=== PATIENT | female | born 1965 | race Caucasian/White ===

== ENCOUNTER 2018-12-10 17:38 | Emergency (ER) | payer OTHER, SELFPAY ==
[2018-12-10 17:44] VITALS: BP 131/92; PULSE 97; RESP 20; TEMP 38.1; O2SAT 100
--- NOTE | 2018-12-10 17:51 | DI.RAD.S_ITS ---
PROCEDURE: XR CHEST 2V INDICATIONS: shortness of air, fever TECHNIQUE: 2 views of the chest were acquired. COMPARISON: None. FINDINGS: Surgical changes and devices: None. Lungs and pleura: Lungs are clear. No pleural effusions or pneumothorax. Mediastinum: Mediastinal contours are normal. Heart size is normal. Bones and chest wall: No suspicious bony abnormalities. Soft tissues appear unremarkable. IMPRESSION: No acute pulmonary process. Dictated by: Carli Pichardo M.D. on 12/10/2018 at 18:20 Approved by: Carli Pichardo M.D. on 12/10/2018 at 18:20
[2018-12-10 18:05] LABS: Add Manual Diff / Slide Review NO; Basophils Absolute Auto 0 /uL (0-100); Basophils Percent Auto 0.2 % (0-2); Eosinophils Absolute Auto 100 /uL (0-450); Hematocrit 42.5 % (36-46); Hemoglobin 13.8 g/dL (12.0-16.0); Lymphocytes Absolute Auto 3300 /uL (1100-4500); Lymphocytes Percent Auto 29.2 % (25-40); Mean Corpuscular HGB Conc 32.5 % (30-36); Mean Corpuscular Hemoglobin 28.6 PG (26-34); Mean Corpuscular Volume 88.1 fL (80-100); Monocytes Absolute Auto 700 /uL (0-900); Monocytes Percent Auto 6.2 % (3-14); Neutrophils Absolute Auto 7200 /uL (1500-7000); Neutrophils Percent Auto 63.4 % (50-75); Platelet Count 254 X10^3/uL (150-400); Red Blood Cell Count 4.82 X10^6/uL (4.0-5.2); Red Cell Distribution Width 13.1 % (11.6-14.8); White Blood Cell Count 11.4 X10^3/uL (4.5-11.0)
[2018-12-10 18:13] LABS: Influenza A and B by PCR Rapid Negative (Negative)
[2018-12-10 18:15] LABS: Alanine Aminotransferase 86 IU/L (9-52); Albumin 4.7 g/dL (3.5-5.0); Albumin Globulin Ratio 1.3 (1.0-2.8); Alkaline Phosphatase 76 U/L (38-126); Aspartate Aminotransferase 43 IU/L (14-36); Bilirubin Total 0.3 mg/dL (0.2-1.3); Blood Urea Nitrogen 20 mg/dL (7-17); Calcium 9.6 mg/dL (8.4-10.2); Carbon Dioxide 26 mmol/L (22-32); Chloride 103 mmol/L (98-107); Creatine Kinase 64 U/L (30-135); Estimated Glomerular Filt Rate > 60.0 mL/min (>60); Globulin 3.7 g/dL (1.7-4.1); Glucose 149 mg/dL (70-100); HEMOLYSIS < 15 (0-50); Potassium 4.1 mmol/L (3.4-5.1); Sodium 141 mmol/L (137-145); Total Protein 8.4 g/dL (6.3-8.2)
[2018-12-10 18:26] LABS: Troponin I < 0.012 ng/mL (0.01-0.034)
--- NOTE | 2018-12-10 19:53 | ED.SOB ---
HPI - SOB/Dyspnea General Chief Complaint: Shortness of Breath/Dyspnea Stated Complaint: BACK OF NECK PAIN, RACING HEART, SHORT OF BREATH Time Seen by Provider: 12/10/18 19:46 Source: patient Mode of arrival: ambulatory Limitations: no limitations History of Present Illness 52-year-old former smoker benign medical history presents with a chief complaint of multiple episodes of racing heart since Sunday. She states she feels palpitations and during these episodes, which can last up to 5/10 minutes she has chest pain and feels lightheaded. All other times she feels completely normal and at baseline. She denies any shortness of breath. She denies any new medications or dietary change. She denies any significant stress for other recent illness. She denies recent travel, history of blood clot, exogenous estrogen or other risk factors for pulmonary embolism. MD Complaint: shortness of breath and chest pain Onset (ago): day(s) Severity: mild Consistency/Duration: intermittent Relieving factors: nothing Exacerbating factors: nothing Associated symptoms: chest pain, pain with inspiration and palpitations Treatment prior to arrival: none Related Data Home oxygen amount: none Allergies Allergy/AdvReac Type Severity Reaction Status Date / Time No Known Drug Allergies Allergy Verified 12/10/18 17:51 Review of Systems Constitutional Denies chills, Denies fever(s), Denies lethargy and Denies weakness Eyes Denies change in vision, Denies eye discharge, Denies irritation and Denies loss of vision ENT Ears, Nose, Mouth, and Throat: Denies change in voice, Denies neck pain and Denies sore throat Cardiovascular Reports chest pain, Denies irregular heart rhythm, Denies lightheadedness, Reports palpitations, Denies dyspnea, Denies dyspnea on exertion and Denies orthopnea Respiratory Denies cough, Denies dyspnea, Denies dyspnea on exertion and Denies wheezing Gastrointestinal Gastrointestinal: Denies abdominal pain, Denies change in bowel habits, Denies diarrhea, Denies nausea and Denies vomiting Genitourinary Denies hematuria, Denies flank pain, Denies urinary incontinence and Denies urinary urgency Musculoskeletal Denies neck pain Integumentary/Breasts Denies pruritus, Denies erythema, Denies rash and Denies wounds Neurologic Denies confusion, Denies loss of vision and Denies weakness Psychiatric Denies anxiety, Denies confusion, Denies depression, Denies homicidal ideation and Denies suicidal ideation Endocrine Reports palpitations Hematologic/Lymphatic Denies easy bruising Allergic/Immunologic Denies wheezing PFSH Social History Smoking Status: Never smoker Social History Smoking Status: Never smoker Exam Narrative Exam Narrative: GENERAL: This is a well-nourished, well-developed patient, in mild distress. HEAD: Atraumatic. Normocephalic. No temporal or scalp tenderness. EYES: Pupils equal round and reactive. Extraocular motions intact. No scleral icterus. No injection or drainage. ENT: Nose without bleeding, purulent drainage or septal hematoma. Throat without erythema, tonsillar hypertrophy or exudate. Uvula midline. Airway patent. NECK: Trachea midline. No JVD or lymphadenopathy. Supple, nontender, no meningeal signs. CARDIOVASCULAR: Tachycardic, regular rhythm without murmurs, gallops, or rubs. RESPIRATORY: Clear to auscultation. Breath sounds equal bilaterally. No wheezes, rales, or rhonchi. GASTROINTESTINAL: Abdomen soft, non-tender, nondistended. No hepato-splenomegaly, or palpable masses. No guarding. EXTREMITIES: No clubbing, cyanosis, or edema. No joint tenderness, effusion, or edema noted. BACK: Nontender without deformity or crepitance. No flank tenderness. NEURO: AOx3. SKIN: No rash or erythema. Initial Vital Signs Initial Vital Signs: Vital Signs Temperature 100.5 F H 12/10/18 17:44 Pulse Rate 97 H 12/10/18 17:44 Respiratory Rate 20 12/10/18 17:44 Blood Pressure 131/92 H 12/10/18 17:44 Pulse Oximetry 100 12/10/18 17:44 Scores PERC Score Age greater than or equal to 50 years: Yes Heart rate greater than or equal to 100 bpm: Yes Room Air O2 Sat less than 95%: No Unilateral leg swelling: No Recent trauma or surgery: No Hemoptysis: No Prior PE or DVT: No Hormone Use: No Total PERC Score: 2 Wells' Criteria for PE Clinical signs and symptoms of PE: No PE is #1 Dx or equally likely: No Heart rate > 100: Yes Immobilization at least 3 days or surg in previous 4 weeks: No History of PE or DVT: No Hemoptysis: No Malignancy w/Treatment within 6 months or palliative: No Wells' PE Score total: 1.5 Course Orders Ordered: ED Orders 12/10/18 17:51 XR chest 2V Stat EKG-12 Lead Stat 12/10/18 17:55 Complete Blood Count AUTO DIFF Stat Comprehensive Metabolic Panel Stat D Dimer Stat Influenza A and B by PCR Rapid Stat Thyroid Stimulating Hormone Stat Troponin & CK Cardiac Panel Stat 12/10/18 18:05 Urine Drug Screen, Rapid Stat 12/10/18 20:46 CT angio chest PE protocol Stat Discontinued Medications Sodium Chloride (Normal Saline 0.9%) 1,000 mls @ 1,000 mls/hr IV BOLUS ONE Stop: 12/10/18 20:59 Last Infusion: 12/10/18 21:13 Dose: 1,000 mls/hr Infusion: 12/10/18 20:53 Dose: 0 mls/hr Admin: 12/10/18 20:14 Dose: 1,000 mls/hr Reevaluation(s) Reevaluation #1: Maci's PE algorithm employed and Wells score is low risk, patient fails PERC and therefore DDimer ordered which was elevated hence the decision to order CTA for PE> Vital Signs - 8 hr 12/10/18 17:44 12/10/18 19:54 12/10/18 20:30 Temperature 100.5 F H Pulse Rate 97 H 106 H 98 H Respiratory Rate 20 17 15 Blood Pressure 131/92 H Blood Pressure [Right Arm] 119/83 117/78 Pulse Oximetry 100 96 98 12/10/18 21:30 Temperature Pulse Rate 93 H Respiratory Rate 21 Blood Pressure Blood Pressure [Right Arm] 116/82 Pulse Oximetry 100 MDM - SOB/Dyspnea Lab Data Result diagrams: 12/10/18 17:55 12/10/18 17:55 Lab Results 12/10/18 12/10/18 12/10/18 Range/Units 17:55 17:55 17:55 WBC 11.4 H (4.5-11.0) X10^3/uL RBC 4.82 (4.0-5.2) X10^6/uL Hgb 13.8 (12.0-16.0) g/dL Hct 42.5 (36-46) % MCV 88.1 (80-100) fL MCH 28.6 (26-34) PG MCHC 32.5 (30-36) % RDW 13.1 (11.6-14.8) % Plt Count 254 (150-400) X10^3/uL Neut % (Auto) 63.4 (50-75) % Lymph % (Auto) 29.2 (25-40) % Phillips % (Auto) 6.2 (3-14) % Eos % (Auto) 1.0 L (2-4) % Baso % (Auto) 0.2 (0-2) % Neut # (Auto) 7200 H (8696-8390) /uL Lymph # (Auto) 3300 (0849-7965) /uL Phillips # (Auto) 700 (0-900) /uL Eos # (Auto) 100 (0-450) /uL Baso # (Auto) 0 (0-100) /uL D-Dimer (<230) ng/mL Sodium 141 (137-145) mmol/L Potassium 4.1 (3.4-5.1) mmol/L Chloride 103 (98-107) mmol/L Carbon Dioxide 26 (22-32) mmol/L BUN 20 H (7-17) mg/dL Creatinine 0.80 (0.52-1.04) mg/dL Estimated GFR > 60.0 (>60) mL/min BUN/Creatinine Ratio 25.0 H (6-22) Glucose 149 H (70-100) mg/dL Calcium 9.6 (8.4-10.2) mg/dL Total Bilirubin 0.3 (0.2-1.3) mg/dL AST 43 H (14-36) IU/L ALT 86 H (9-52) IU/L Alkaline Phosphatase 76 (38-126) U/L Total Creatine Kinase 64 (30-135) U/L CK-MB (CK-2) TNP CK-MB (CK-2) Rel Index TNP Troponin I < 0.012 (0.01-0.034) ng/mL Total Protein 8.4 H (6.3-8.2) g/dL Albumin 4.7 (3.5-5.0) g/dL Globulin 3.7 (1.7-4.1) g/dL Albumin/Globulin Ratio 1.3 (1.0-2.8) TSH (0.47-4.68) uIU/mL Urine Opiates Screen (Negative) Ur Oxycodone Screen (Negative) Urine Methadone Screen (Negative) Ur Barbiturates Screen (Negative) U Tricyclic Antidepress (Negative) Ur Phencyclidine Scrn (Negative) Ur Amphetamines Screen (Negative) U Methamphetamines Scrn (Negative) Ur MDMA Scrn (Ecstasy) (Negative) U Benzodiazepines Scrn (Negative) Urine Cocaine Screen (Negative) U Marijuana (THC) Screen (Negative) Influenza A & B (PCR) Negative (Negative) 12/10/18 12/10/18 12/10/18 Range/Units 17:55 17:55 18:05 WBC (4.5-11.0) X10^3/uL RBC (4.0-5.2) X10^6/uL Hgb (12.0-16.0) g/dL Hct (36-46) % MCV (80-100) fL MCH (26-34) PG MCHC (30-36) % RDW (11.6-14.8) % Plt Count (150-400) X10^3/uL Neut % (Auto) (50-75) % Lymph % (Auto) (25-40) % Phillips % (Auto) (3-14) % Eos % (Auto) (2-4) % Baso % (Auto) (0-2) % Neut # (Auto) (5614-5113) /uL Lymph # (Auto) (9668-7387) /uL Phillips # (Auto) (0-900) /uL Eos # (Auto) (0-450) /uL Baso # (Auto) (0-100) /uL D-Dimer 396 H (<230) ng/mL Sodium (137-145) mmol/L Potassium (3.4-5.1) mmol/L Chloride (98-107) mmol/L Carbon Dioxide (22-32) mmol/L BUN (7-17) mg/dL Creatinine (0.52-1.04) mg/dL Estimated GFR (>60) mL/min BUN/Creatinine Ratio (6-22) Glucose (70-100) mg/dL Calcium (8.4-10.2) mg/dL Total Bilirubin (0.2-1.3) mg/dL AST (14-36) IU/L ALT (9-52) IU/L Alkaline Phosphatase (38-126) U/L Total Creatine Kinase (30-135) U/L CK-MB (CK-2) CK-MB (CK-2) Rel Index Troponin I (0.01-0.034) ng/mL Total Protein (6.3-8.2) g/dL Albumin (3.5-5.0) g/dL Globulin (1.7-4.1) g/dL Albumin/Globulin Ratio (1.0-2.8) TSH 2.48 (0.47-4.68) uIU/mL Urine Opiates Screen Negative (Negative) Ur Oxycodone Screen Negative (Negative) Urine Methadone Screen Negative (Negative) Ur Barbiturates Screen Negative (Negative) U Tricyclic Antidepress Negative (Negative) Ur Phencyclidine Scrn Negative (Negative) Ur Amphetamines Screen Negative (Negative) U Methamphetamines Scrn Negative (Negative) Ur MDMA Scrn (Ecstasy) Negative (Negative) U Benzodiazepines Scrn Positive H (Negative) Urine Cocaine Screen Negative (Negative) U Marijuana (THC) Screen Negative (Negative) Influenza A & B (PCR) (Negative) Imaging Data Chest x-ray: Radiologist's impression: NAP CT scan - chest: Radiologist's impression: [place] [address] CT Scan Report Signed Patient: DAVID OATES MMR#: [id number] : 1965Acct:[id number] Age/Sex: 52 / FDate of Service: 12/10/18 Loc: ED Accession Number: [id number] Procedure: CT angio chest PE protocol Ordering Provider: Bill Perkins D.O. PROCEDURE: CT ANGIO CHEST PE PROTOCOL INDICATIONS: tachy, SOB, pleuritic pain, elevated DDimer TECHNIQUE: After the administration of intravenous contrast, 2 mm thick sections acquired from the pulmonary apices to the posterior costophrenic angles. 3-dimensional maximum intensity projection (MIP) coronal and sagittal reformats were then acquired through the thorax. For radiation dose reduction, the following was used: automated exposure control, adjustment of mA and/or kV according to patient size. COMPARISON: [facility], CR, XR CHEST 2V, 12/10/2018, 18:09. FINDINGS: Image quality: Excellent. Pulmonary arteries: Pulmonary arteries are normal in size, and demonstrate no intraluminal filling defects to suggest central pulmonary embolism. Lungs and pleura: 5 mm right lower lobe nodule. No pleural effusions or pneumothorax. Central and peripheral airways are patent. Mediastinum: Heart size is normal, without pericardial effusion. No mediastinal or hilar adenopathy. Thoracic aorta is normal in caliber and enhancement. Esophagus is normal in caliber, without hiatal hernia. Bones and chest wall: No suspicious bony lesions. Ribs and thoracic spine appear intact throughout. Thyroid gland is unremarkable. No axillary or supraclavicular adenopathy. Abdomen: Liver is enlarged. Otherwise, visualized upper abdominal solid organs appear normal in the early arterial phase of enhancement. IMPRESSION: 1. No pulmonary embolism. 2. Nonspecific 5 mm right lower lobe nodule. No priors are available for comparison. Recommend interval followup as below. Fleischner Society criteria for lung nodule followup. Nodule size (mm)Low-risk patientHigh-risk patient<6 (single or multiple)No routine followup/Optional CT at 12 months.6-8 (single or multiple)CT at 6-12 months; then noptional CT at 18-24 monthsCT at 6-12 months, then 18-24 months i>8 (single)CT at 3 months, then optional CT at 18-24 months if no change.Initial follow-up CT at 3-6 months, then 18-24 months >8 (multiple)CT at 3-[address] at 18-24 months.CT at 3-6 months, then CT at 18-24 months.Non-solid (ground-glass) or partly solid nodules may require longer follow-up to exclude indolent adenocarcinoma. Dictated by: Carli Pichardo M.D. on 12/10/2018 at 21:21 Approved by: Carli Pichardo M.D. on 12/10/2018 at 21:25 ECG Data Attestation: I personally reviewed and interpreted this ECG as follows: Prior ECG tracings: not available for review Interpretation: EKG is normal sinus rhythm rate [ 97] and free of any signs of ischemia or ectopy. No ST segmental elevation or depression. No T wave inversions MDM Narrative Medical decision making narrative: Multiple etiologies for patient's symptoms considered including: [cardiac ischemia, tachyarrhythmia, pulmonary embolism versus other] Patient's symptoms improved or duration of stay with above-stated therapies. Findings and discharge diagnosis discussed with patient/family followed by verbalization of understanding Return precautions discussed with patient/family whom verbalize understanding. Discharge Plan Departure Patient Disposition: Home Clinical Impression: Atypical chest pain, Heart palpitations Discharge Date/Time: 12/10/18 21:51 Interventions: ED Discharge Assessment Last Done: 12/10/18 21:51 Instructions: DI for Atypical Chest Pain Activity Restrictions/Additional Instructions: *You have been diagnosed with [ atypical chest pain and palpitations ] *What to do: * continue to take medications as directed *Follow up with your primary care provider in 2-3 days, call for an appointment. Let them know you were seen in the Emergency Department and that we ask that you be seen in follow up *Return to ER if you should have any new, worsening or concerning symptoms * avoid caffeine, nicotine, alcohol and other stimulants such as those found in many [id number] cough and cold medications
[2018-12-10 19:54] VITALS: BP 119/83; PULSE 106; RESP 17; O2SAT 96
--- NOTE | 2018-12-10 20:02 | ED_ITS ---
HPI - SOB/Dyspnea General Chief Complaint: Shortness of Breath/Dyspnea Stated Complaint: BACK OF NECK PAIN, RACING HEART, SHORT OF BREATH Time Seen by Provider: 12/10/18 19:46 Source: patient Mode of arrival: ambulatory Limitations: no limitations History of Present Illness 52-year-old former smoker benign medical history presents with a chief complaint of multiple episodes of racing heart since Sunday. She states she feels palpitations and during these episodes, which can last up to 5/10 minutes she has chest pain and feels lightheaded. All other times she feels completely normal and at baseline. She denies any shortness of breath. She denies any new medications or dietary change. She denies any significant stress for other r ecent illness. She denies recent travel, history of blood clot, exogenous estrogen or other risk factors for pulmonary embolism. MD Complaint: shortness of breath and chest pain Onset (ago): day(s) Severity: mild Consistency/Duration: intermittent Relieving factors: nothing Exacerbating factors: nothing Associated symptoms: chest pain, pain with inspiration and palpitations Treatment prior to arrival: none Related Data Home oxygen amount: none Allergies Allergy/AdvReac Type Severity Reaction Status Date / Time No Known Drug Allergies Allergy Verified 12/10/18 17:51 Review of Systems Constitutional Denies chills, Denies fever(s), Denies lethargy and Denies weakness Eyes Denies change in vision, Denies eye discharge, Denies irritation and Denies loss of vision ENT Ears, Nose, Mouth, and Throat: Denies change in voice, Denies neck pain and Denies sore throat Cardiovascular Reports chest pain, Denies irregular heart rhythm, Denies lightheadedness, Reports palpitations, Denies dyspnea, Denies dyspnea on exertion and Denies orthopnea Respiratory Denies cough, Denies dyspnea, Denies dyspnea on exertion and Denies wheezing Gastrointestinal Gastrointestinal: Denies abdominal pain, Denies change in bowel habits, Denies diarrhea, Denies nausea and Denies vomiting Genitourinary Denies hematuria, Denies flank pain, Denies urinary incontinence and Denies urinary urgency Musculoskeletal Denies neck pain Integumentary/Breasts Denies pruritus, Denies erythema, Denies rash and Denies wounds Neurologic Denies confusion, Denies loss of vision and Denies weakness Psychiatric Denies anxiety, Denies confusion, Denies depression, Denies homicidal ideation and Denies suicidal ideation Endocrine Reports palpitations Hematologic/Lymphatic Denies easy bruising Allergic/Immunologic Denies wheezing PFSH Social History Smoking Status: Never smoker Social History Smoking Status: Never smoker Exam Narrative Exam Narrative: GENERAL: This is a well-nourished, well-developed patient, in mild distress. HEAD: Atraumatic. Normocephalic. No temporal or scalp tenderness. EYES: Pupils equal round and reactive. Extraocular motions intact. No scleral icterus. No injection or drainage. ENT: Nose without bleeding, purulent drainage or septal hematoma. Throat without erythema, tonsillar hypertrophy or exudate. Uvula midline. Airway patent. NECK: Trachea midline. No JVD or lymphadenopathy. Supple, nontender, no meningeal signs. CARDIOVASCULAR: Tachycardic, regular rhythm without murmurs, gallops, or rubs. RESPIRATORY: Clear to auscultation. Breath sounds equal bilaterally. No wheezes, rales, or rhonchi. GASTROINTESTINAL: Abdomen soft, non-tender, nondistended. No hepato- splenomegaly, or palpable masses. No guarding. EXTREMITIES: No clubbing, cyanosis, or edema. No joint tenderness, effusion, or edema noted. BACK: Nontender without deformity or crepitance. No flank tenderness. NEURO: AOx3. SKIN: No rash or erythema. Initial Vital Signs Initial Vital Signs: Vital Signs Temperature 100.5 F H 12/10/18 17:44 Pulse Rate 97 H 12/10/18 17:44 Respiratory Rate 20 12/10/18 17:44 Blood Pressure 131/92 H 12/10/18 17:44 Pulse Oximetry 100 12/10/18 17:44 Scores PERC Score Age greater than or equal to 50 years: Yes Heart rate greater than or equal to 100 bpm: Yes Room Air O2 Sat less than 95%: No Unilateral leg swelling: No Recent trauma or surgery: No Hemoptysis: No Prior PE or DVT: No Hormone Use: No Total PERC Score: 2 Wells' Criteria for PE Clinical signs and symptoms of PE: No PE is #1 Dx or equally likely: No Heart rate > 100: Yes Immobilization at least 3 days or surg in previous 4 weeks: No History of PE or DVT: No Hemoptysis: No Malignancy w/Treatment within 6 months or palliative: No Wells' PE Score total: 1.5 Course Orders Ordered: ED Orders 12/10/18 17:51 XR chest 2V Stat EKG-12 Lead Stat 12/10/18 17:55 Complete Blood Count AUTO DIFF Stat Comprehensive Metabolic Panel Stat D Dimer Stat Influenza A and B by PCR Rapid Stat Thyroid Stimulating Hormone Stat Troponin & CK Cardiac Panel Stat 12/10/18 18:05 Urine Drug Screen, Rapid Stat 12/10/18 20:46 CT angio chest PE protocol Stat Discontinued Medications Sodium Chloride (Normal Saline 0.9%) 1,000 mls @ 1,000 mls/hr IV BOLUS ONE Stop: 12/10/18 20:59 Last Infusion: 12/10/18 21:13 Dose: 1,000 mls/hr Infusion: 12/10/18 20:53 Dose: 0 mls/hr Admin: 12/10/18 20:14 Dose: 1,000 mls/hr Reevaluation(s) Reevaluation #1: Maci's PE algorithm employed and Wells score is low risk, patient fails PERC and therefore DDimer ordered which was elevated hence the decision to order CTA for PE> Vital Signs - 8 hr 12/10/18 17:44 12/10/18 19:54 12/10/18 20:30 Temperature 100.5 F H Pulse Rate 97 H 106 H 98 H Respiratory Rate 20 17 15 Blood Pressure 131/92 H Blood Pressure [Right Arm] 119/83 117/78 Pulse Oximetry 100 96 98 12/10/18 21:30 Temperature Pulse Rate 93 H Respiratory Rate 21 Blood Pressure Blood Pressure [Right Arm] 116/82 Pulse Oximetry 100 MDM - SOB/Dyspnea Lab Data Result diagrams: 12/10/18 17:55 12/10/18 17:55 Lab Results 12/10/18 12/10/18 12/10/18 Range/Units 17:55 17:55 17:55 WBC 11.4 H (4.5-11.0) X10^3/uL RBC 4.82 (4.0-5.2) X10^6/uL Hgb 13.8 (12.0-16.0) g/dL Hct 42.5 (36-46) % MCV 88.1 (80-100) fL MCH 28.6 (26-34) PG MCHC 32.5 (30-36) % RDW 13.1 (11.6-14.8) % Plt Count 254 (150-400) X10^3/uL Neut % (Auto) 63.4 (50-75) % Lymph % (Auto) 29.2 (25-40) % [place] % (Auto) 6.2 (3-14) % Eos % (Auto) 1.0 L (2-4) % Baso % (Auto) 0.2 (0-2) % Neut # (Auto) 7200 H (1833-3253) /uL Lymph # (Auto) 3300 (7147-3662) /uL [place] # (Auto) 700 (0-900) /uL Eos # (Auto) 100 (0-450) /uL Baso # (Auto) 0 (0-100) /uL D-Dimer (<230) ng/mL Sodium 141 (137-145) mmol/L Potassium 4.1 (3.4-5.1) mmol/L Chloride 103 (98-107) mmol/L Carbon Dioxide 26 (22-32) mmol/L BUN 20 H (7-17) mg/dL Creatinine 0.80 (0.52-1.04) mg/dL Estimated GFR > 60.0 (>60) mL/min BUN/Creatinine Ratio 25.0 H (6-22) Glucose 149 H (70-100) mg/dL Calcium 9.6 (8.4-10.2) mg/dL Total Bilirubin 0.3 (0.2-1.3) mg/dL AST 43 H (14-36) IU/L ALT 86 H (9-52) IU/L Alkaline Phosphatase 76 (38-126) U/L Total Creatine Kinase 64 (30-135) U/L CK-MB (CK-2) TNP CK-MB (CK-2) Rel Index TNP Troponin I < 0.012 (0.01-0.034) ng/mL Total Protein 8.4 H (6.3-8.2) g/dL Albumin 4.7 (3.5-5.0) g/dL Globulin 3.7 (1.7-4.1) g/dL Albumin/Globulin Ratio 1.3 (1.0-2.8) TSH (0.47-4.68) uIU/mL Urine Opiates Screen (Negative) Ur Oxycodone Screen (Negative) Urine Methadone Screen (Negative) Ur Barbiturates Screen (Negative) U Tricyclic Antidepress (Negative) Ur Phencyclidine Scrn (Negative) Ur Amphetamines Screen (Negative) U Methamphetamines Scrn (Negative) Ur MDMA Scrn (Ecstasy) (Negative) U Benzodiazepines Scrn (Negative) Urine Cocaine Screen (Negative) U Marijuana (THC) Screen (Negative) Influenza A & B (PCR) Negative (Negative) 12/10/18 12/10/18 12/10/18 Range/Units 17:55 17:55 18:05 WBC (4.5-11.0) X10^3/uL RBC (4.0-5.2) X10^6/uL Hgb (12.0-16.0) g/dL Hct (36-46) % MCV (80-100) fL MCH (26-34) PG MCHC (30-36) % RDW (11.6-14.8) % Plt Count (150-400) X10^3/uL Neut % (Auto) (50-75) % Lymph % (Auto) (25-40) % [place] % (Auto) (3-14) % Eos % (Auto) (2-4) % Baso % (Auto) (0-2) % Neut # (Auto) (3252-1104) /uL Lymph # (Auto) (4357-5920) /uL [place] # (Auto) (0-900) /uL Eos # (Auto) (0-450) /uL Baso # (Auto) (0-100) /uL D-Dimer 396 H (<230) ng/mL Sodium (137-145) mmol/L Potassium (3.4-5.1) mmol/L Chloride (98-107) mmol/L Carbon Dioxide (22-32) mmol/L BUN (7-17) mg/dL Creatinine (0.52-1.04) mg/dL Estimated GFR (>60) mL/min BUN/Creatinine Ratio (6-22) Glucose (70-100) mg/dL Calcium (8.4-10.2) mg/dL Total Bilirubin (0.2-1.3) mg/dL AST (14-36) IU/L ALT (9-52) IU/L Alkaline Phosphatase (38-126) U/L Total Creatine Kinase (30-135) U/L CK-MB (CK-2) CK-MB (CK-2) Rel Index Troponin I (0.01-0.034) ng/mL Total Protein (6.3-8.2) g/dL Albumin (3.5-5.0) g/dL Globulin (1.7-4.1) g/dL Albumin/Globulin Ratio (1.0-2.8) TSH 2.48 (0.47-4.68) uIU/mL Urine Opiates Screen Negative (Negative) Ur Oxycodone Screen Negative (Negative) Urine Methadone Screen Negative (Negative) Ur Barbiturates Screen Negative (Negative) U Tricyclic Antidepress Negative (Negative) Ur Phencyclidine Scrn Negative (Negative) Ur Amphetamines Screen Negative (Negative) U Methamphetamines Scrn Negative (Negative) Ur MDMA Scrn (Ecstasy) Negative (Negative) U Benzodiazepines Scrn Positive H (Negative) Urine Cocaine Screen Negative (Negative) U Marijuana (THC) Screen Negative (Negative) Influenza A & B (PCR) (Negative) Imaging Data Chest x-ray: Radiologist's impression: NAP CT scan - chest: Radiologist's impression: [place] [address] CT Scan Report Signed Patient: DAVID OATES [facility]#: [id number] : 1965Acct:[id number] Age/Sex: 52 / FDate of Service: 12/10/18 Loc: ED Accession Number: [id number] Procedure: CT angio chest PE protocol Ordering Provider: Bill Perkins D.O. PROCEDURE: CT ANGIO CHEST PE PROTOCOL INDICATIONS: tachy, SOB, pleuritic pain, elevated DDimer TECHNIQUE: After the administration of intravenous contrast, 2 mm thick sections acquired from the pulmonary apices to the posterior costophrenic angles. 3-dimensional maximum intensity projection (MIP) coronal and sagittal reformats were then acquired through the thorax. For radiation dose reduction, the following was used: automated exposure control, adjustment of mA and/or kV according to patient size. COMPARISON: [facility], CR, XR CHEST 2V, 12/10/2018, 18:09. FINDINGS: Image quality: Excellent. Pulmonary arteries: Pulmonary arteries are normal in size, and demonstrate no intraluminal filling defects to suggest central pulmonary embolism. Lungs and pleura: 5 mm right lower lobe nodule. No pleural effusions or pneumothorax. Central and peripheral airways are patent. Mediastinum: Heart size is normal, without pericardial effusion. No mediastinal or hilar adenopathy. Thoracic aorta is normal in caliber and enhancement. Esophagus is normal in caliber, without hiatal hernia. Bones and chest wall: No suspicious bony lesions. Ribs and thoracic spine appear intact throughout. Thyroid gland is unremarkable. No axillary or supraclavicular adenopathy. Abdomen: Liver is enlarged. Otherwise, visualized upper abdominal solid organs appear normal in the early arterial phase of enhancement. IMPRESSION: 1. No pulmonary embolism. 2. Nonspecific 5 mm right lower lobe nodule. No priors are available for comparison. Recommend interval followup as below. Fleischner Society criteria for lung nodule followup. Nodule size (mm)Low-risk patientHigh-risk patient<6 (single or multiple)No routine followup/Optional CT at 12 months.6-8 (single or multiple)CT at 6-12 months; then noptional CT at 18-24 monthsCT at 6-12 months, then 18-24 months i>8 (single)CT at 3 months, then optional CT at 18-24 months if no change.Initial follow-up CT at 3- 6 months, then 18-24 months >8 (multiple)CT at 3-[address] at 18- 24 months.CT at 3-6 months, then CT at 18-24 months.Non-solid (ground-glass) or partly solid nodules may require longer follow-up to exclude indolent adenocarcinoma. Dictated by: Carli Pichardo M.D. on 12/10/2018 at 21:21 Approved by: Carli Pichardo M.D. on 12/10/2018 at 21:25 ECG Data Attestation: I personally reviewed and interpreted this ECG as follows: Prior ECG tracings: not available for review Interpretation: EKG is normal sinus rhythm rate [ 97] and free of any signs of ischemia or ectopy. No ST segmental elevation or depression. No T wave inversions MDM Narrative Medical decision making narrative: Multiple etiologies for patient's symptoms considered including: [cardiac ischemia, tachyarrhythmia, pulmonary embolism versus other] Patient's symptoms improved or duration of stay with above-stated therapies. Findings and discharge diagnosis discussed with patient/family followed by verbalization of understanding Return precautions discussed with patient/family whom verbalize understanding. Discharge Plan Departure Patient Disposition: Home Clinical Impression: Atypical chest pain, Heart palpitations Discharge Date/Time: 12/10/18 21:51 Interventions: ED Discharge Assessment Last Done: 12/10/18 21:51 Instructions: DI for Atypical Chest Pain Activity Restrictions/Additional Instructions: *You have been diagnosed with [ atypical chest pain and palpitations ] *What to do: * continue to take medications as directed *Follow up with your primary care provider in 2-3 days, call for an appointment. Let them know you were seen in the Emergency Department and that we ask that you be seen in follow up *Return to ER if you should have any new, worsening or concerning symptoms * avoid caffeine, nicotine, alcohol and other stimulants such as those fou nd in many [id number] cough and cold medications
[2018-12-10] MEDS: SODIUM CHLORIDE 0.9% 1,000 ML 1000 ML IV (20:14)
[2018-12-10 20:30] VITALS: BP 117/78; PULSE 98; RESP 15; O2SAT 98
[2018-12-10 20:31] LABS: D Dimer 396 ng/mL (<230)
--- NOTE | 2018-12-10 20:46 | DI.CT.S_ITS ---
PROCEDURE: CT ANGIO CHEST PE PROTOCOL INDICATIONS: tachy, SOB, pleuritic pain, elevated DDimer TECHNIQUE: After the administration of intravenous contrast, 2 mm thick sections acquired from the pulmonary apices to the posterior costophrenic angles. 3-dimensional maximum intensity projection (MIP) coronal and sagittal reformats were then acquired through the thorax. For radiation dose reduction, the following was used: automated exposure control, adjustment of mA and/or kV according to patient size. COMPARISON: [facility], CR, XR CHEST 2V, 12/10/2018, 18:09. FINDINGS: Image quality: Excellent. Pulmonary arteries: Pulmonary arteries are normal in size, and demonstrate no intraluminal filling defects to suggest central pulmonary embolism. Lungs and pleura: 5 mm right lower lobe nodule. No pleural effusions or pneumothorax. Central and peripheral airways are patent. Mediastinum: Heart size is normal, without pericardial effusion. No mediastinal or hilar adenopathy. Thoracic aorta is normal in caliber and enhancement. Esophagus is normal in caliber, without hiatal hernia. Bones and chest wall: No suspicious bony lesions. Ribs and thoracic spine appear intact throughout. Thyroid gland is unremarkable. No axillary or supraclavicular adenopathy. Abdomen: Liver is enlarged. Otherwise, visualized upper abdominal solid organs appear normal in the early arterial phase of enhancement. IMPRESSION: 1. No pulmonary embolism. 2. Nonspecific 5 mm right lower lobe nodule. No priors are available for comparison. Recommend interval followup as below. Fleischner Society criteria for lung nodule followup. Nodule size (mm)Low-risk patientHigh-risk patient<6 (single or multiple)No routine followup/Optional CT at 12 months.6-8 (single or multiple)CT at 6-12 months; then noptional CT at 18-24 monthsCT at 6-12 months, then 18-24 months i>8 (single)CT at 3 months, then optional CT at 18-24 months if no change.Initial follow-up CT at 3-6 months, then 18-24 months >8 (multiple)CT at 3-[address] at 18-24 months.CT at 3-6 months, then CT at 18-24 months.Non-solid (ground-glass) or partly solid nodules may require longer follow-up to exclude indolent adenocarcinoma. Dictated by: Carli Pichardo M.D. on 12/10/2018 at 21:21 Approved by: Carli Pichardo M.D. on 12/10/2018 at 21:25
[2018-12-10 20:55] LABS: Urine Amphetamines Negative (Negative); Urine Barbiturates Negative (Negative); Urine Benzodiazepines Positive (Negative); Urine Cocaine Negative (Negative); Urine MDMA Negative (Negative); Urine Methadone Negative (Negative); Urine Methamphetamines Negative (Negative); Urine Morphine/Opi cutoff 2000 Negative (Negative); Urine Oxycodone Negative (Negative); Urine Phencyclidine Negative (Negative); Urine Tetrahydrocannabinol Negative (Negative); Urine Tricyclic Antidepressant Negative (Negative)
[2018-12-10 20:55] LABS: Thyroid Stimulating Hormone 2.48 uIU/mL (0.47-4.68)
[2018-12-10 21:30] VITALS: BP 116/82; PULSE 93; RESP 21; O2SAT 100
== END 2018-12-10 21:51 | disposition home or self-care (01) ==
PROVIDERS: Emergency Medicine; Emergency Provider Emergency Medicine
DX: R07.89 Other chest pain (principal); R00.2 Palpitations; R06.02 Shortness of breath
CPT/HCPCS: 71046; 71275; 80053; 80305; 82550; 84443; 84484; 85025; 85379; 87400; 93005; 96360; 96361; 99283; 99284; Q9967